=== PATIENT | female | born 1960 | race Caucasian/White ===

== ENCOUNTER → 2020-03-22 | Outpatient (CLI) | payer BC ==
[~2020-03-22] MED LIST: ALBU8.5H5 INH; CETI10CA PO; DIPH25CA61 PO; OMNIPAQUE 350 MG/ML, 150 ML BOTTLE ONE
== END | disposition home or self-care (01) ==
LOC: RAD 16:06
PROVIDERS: ATTEND Physician Assistant Medical
DX: E07.89 Other specified disorders of thyroid (principal); R59.9 Enlarged lymph nodes, unspecified; R05 Cough
CPT/HCPCS: 70491; 71260; Q9967